=== PATIENT | male | born 1945 | race Caucasian/White ===

== ENCOUNTER 2021-06-18 11:02 | Inpatient (IN) | payer OTHER ==
[2021-06-18] MEDS ORDERED: NALOXONE HCL 0.4 MG/ML VIAL ONE (11:11)
[2021-06-18] MEDS ORDERED: SODIUM CHLORIDE 1,000 ML IV SCH (11:15)
[2021-06-18] MEDS ORDERED: RAPID SEQUENCE INTUBATION KIT NR ONE (11:17)
[2021-06-18] MEDS ORDERED: ETOMIDATE 40 MG/20 ML VIAL IVPUSH ONE (11:20)
[2021-06-18] MEDS ORDERED: NALOXONE HCL 0.4 MG/ML VIAL IVPUSH ONE (11:20)
[2021-06-18] MEDS ORDERED: ROCURONIUM BROMIDE 50 MG/5 ML VIAL IV ONE (11:20)
[2021-06-18] MEDS ORDERED: NICARDIPINE 25 MG in DEXTROSE 5%-WATER - 240 ML IVPB SCH (11:30)
[2021-06-18 11:38] LABS: HEMATOCRIT 42.1 % (35.4-49); HEMOGLOBIN 14.1 GM/dL (11.7-16.9); MCH 31.1 pg (25.7-33.7); MCHC 33.4 g/dl (32.0-35.9); MEAN PLT VOLUME 7.7 fl (7.5-11.1); PLATELET COUNT 375 10^3/uL (134-434); RBC 4.52 M/mm3 (4.00-5.60); RDW 14.6 % (11.9-15.9); WHITE BLOOD COUNT 17.4 K/mm3 (4.0-10.0)
[2021-06-18 11:50] LABS: INR 0.97 (0.83-1.09); PROTHROMBIN TIME (PATIENT) 11.4 SEC (9.7-13.0)
[2021-06-18 11:52] LABS: ACTIVATED PTT 31.7 SECONDS (25.2-36.5)
[2021-06-18 12:07] LABS: CHLORIDE 106 mmol/L (98-107); SODIUM 139 mmol/L (136-145)
[2021-06-18 12:12] LABS: ALBUMIN 4.1 g/dl (3.4-5.0); ANION GAP 13 MMOL/L (8-16); BLOOD UREA NITROGEN 67.5 mg/dL (7-18); CALCIUM 9.1 mg/dL (8.5-10.1); CO2 20 mmol/L (21-32)
[2021-06-18 12:13] LABS: GLUCOSE,RANDOM 253 mg/dL (74-106)
[2021-06-18 12:15] LABS: CHOLESTEROL 142 mg/dL (50-200); CREATININE 2.9 mg/dL (0.55-1.3); SGOT/AST 23 U/L (15-37); SGPT/ALT 12 U/L (13-61); TRIGLYCERIDES 79 mg/dL (0-150)
[2021-06-18 12:17] LABS: BILIRUBIN,TOTAL 0.6 mg/dL (0.2-1); TOT PROT 7.3 g/dl (6.4-8.2)
[2021-06-18 12:18] LABS: ALK PHOS 133 U/L (45-117); HDL CHOLESTEROL 62 mg/dL (40-60)
[2021-06-18 12:20] LABS: LDL CHOLESTEROL (ONLY SJRH) 63 mg/dL (5-100)
[2021-06-18 12:29] LABS: PLATELET ESTIMATE ADEQUATE
[2021-06-18] MEDS ORDERED: MORPHINE SULFATE/0.9% NACL/PF 100 MG/100 ML BAG ONE (15:22)
[2021-06-18 18:25] VITALS: BMI 20.3
[2021-06-19] MEDS: MORPHINE SULFATE/0.9% NACL/PF 100 MG/100 ML BAG IVPB SCH ×2 (08:51→17:43)
[2021-06-19 09:25] VITALS: BP 157/98; PULSE 88; TEMP 99.9
[2021-06-19] MEDS ORDERED: morphine SULFATE 4 MG/ML VIAL IVPUSH ONE (15:00)
== END 2021-06-19 22:15 | disposition expired | DRG 64 ==
LOC: JER 11:02 → JERBED 12:27 → J8W 15:46
PROVIDERS: ADMIT Internal Medicine; ATTEND Internal Medicine
DX: I61.9 Nontraumatic intracerebral hemorrhage, unspecified (principal); G93.6 Cerebral edema; G93.5 Compression of brain; N17.9 Acute kidney failure, unspecified; Z68.1 Body mass index [BMI] 19.9 or less, adult; I16.1 Hypertensive emergency; D72.829 Elevated white blood cell count, unspecified; G20 Parkinson's disease; R29.733 NIHSS score 33; E78.5 Hyperlipidemia, unspecified; Z66 Do not resuscitate
CPT/HCPCS: 36415; 70450-TC; 71045-TC-FY; 80053; 80061; 80307; 82140; 82550; 82553; 82962; 83036; 84443; 84484; 85025; 85610; 85730; 86850; 86900; 86901; 87040; 99291; 99292; C9803; U0003; U0005